=== PATIENT | male | born 1980 | race Caucasian/White ===

== ENCOUNTER 2017-06-15 06:59 | Day surgery (SDC) | payer BC, OTHER ==
[~2017-06-15] VITALS: Ht 177.8 cm; Wt 118.8 kg
[~2017-06-15 06:59] MED LIST: BUPIVACAINE/PF 0.5% ONE; EPINEPHRINE 1 MG/ML, 1ML ONE; LISI-167 PO; MELO7.5T31 PO; METF500T4 PO
[2017-06-15] MEDS ORDERED: LACTATED RINGERS 1,000 ML IV SCH (07:23)
[2017-06-15 07:25] VITALS: BP 122/77
[2017-06-15] MEDS ORDERED: DEXAMETHASONE 4 MG/ML, 1ML ONE (09:30)
[2017-06-15] MEDS ORDERED: PROPOFOL 10 MG/ML, 20ML ONE (09:30)
[2017-06-15] MEDS ORDERED: CEFOTETAN 2 GM ONE (09:30)
[2017-06-15] MEDS ORDERED: ROCURONIUM 10 MG/ML,10ML ONE (09:30)
[2017-06-15] MEDS ORDERED: ONDANSETRON 2MG/ML, 2ML ONE (09:30)
[2017-06-15] MEDS ORDERED: KETOROLAC 30 MG/1 ML ONE (09:30)
[2017-06-15] MEDS ORDERED: LABETALOL 5MG/ML, 20ML ONE (09:30)
[2017-06-15] MEDS ORDERED: hydrALAzine 20 MG/ML, 1ML IV PRN (10:00)
[2017-06-15] MEDS ORDERED: LABETALOL 5MG/ML, 20ML IV PRN (10:00)
[2017-06-15] MEDS ORDERED: OXYcodone 5 MG/5 ML ORAL.SOL UDC PO PRN (10:00)
[2017-06-15] MEDS ORDERED: MEPERIDINE/PF 25MG/0.5ML IVPush PRN (10:00)
[2017-06-15] MEDS ORDERED: PROMETHAZINE 25 MG/ML, 1ML IV PRN (10:00)
[2017-06-15] MEDS ORDERED: HYDROmorphone 1 MG/ML, 1ML IV PRN (10:00)
[2017-06-15] MEDS ORDERED: ACETAMINOPHEN 325 MG TABLET PO PRN (10:00)
[2017-06-15] MEDS ORDERED: ONDANSETRON 2MG/ML, 2ML IVPush PRN (10:00)
[2017-06-15] MEDS ORDERED: OXYcodone 5 MG/5 ML ORAL.SOL UDC ONE (10:20)
[2017-06-15] MEDS ORDERED: FENTANYL PF 100 MCG/2ML ONE ×2 (10:20→10:41)
[2017-06-15] MEDS: FENTANYL PF 100 MCG/2ML IV PRN ×3 (10:28→10:54)
== END 2017-06-15 13:50 ==
LOC: OUT 06:59
PROVIDERS: ATTEND Surgery
DX: K81.1 Chronic cholecystitis (principal); K82.8 Other specified diseases of gallbladder; E11.9 Type 2 diabetes mellitus without complications; E78.5 Hyperlipidemia, unspecified; I10 Essential (primary) hypertension; Z98.890 Other specified postprocedural states; Z72.89 Other problems related to lifestyle
CPT/HCPCS: 47562; 82962; 88304; C1729; J0171; J1100; J1885; J2250; J2405; J2704; J3010; J3490; J7120; S0074

== ENCOUNTER → 2018-11-15 | Outpatient (CLI) | payer BC ==
[~2018-11-15] MED LIST changes: -BUPIVACAINE/PF 0.5% ONE; -EPINEPHRINE 1 MG/ML, 1ML ONE; +METF500T17 PO; -METF500T4 PO
== END | disposition home or self-care (01) ==
LOC: CARD 08:45
PROVIDERS: ATTEND Family Medicine
DX: R06.09 Other forms of dyspnea (principal); E11.9 Type 2 diabetes mellitus without complications; I10 Essential (primary) hypertension
CPT/HCPCS: 93017